=== PATIENT | female | born 1940 | race Caucasian/White ===

== ENCOUNTER 2018-10-21 11:13 | Emergency (ER) | payer MEDICARE, MEDICAID ==
[2018-10-21 11:20] VITALS: BMI 32.3
[2018-10-21 11:23] VITALS: RESP 20
--- NOTE | 2018-10-21 11:49 | ED PDOC ---
HPI: General Adult Time Seen by Provider: 10/21/18 11:17 Chief Complaint (Provider): Rib Pain History Per: Patient History/Exam Limitations: no limitations Onset/Duration Of Symptoms: Days Current Symptoms Are (Timing): Still Present Additional Complaint(s): 78 year old female with HTN and diabetes was referred to the ED by her PMD for right lateral rib pain onset for 4 days. Patient reports the pain occurred after lifting something heavy. Also reports of chronic non-productive cough. Denies shortness of breath, fever, diarrhea, urinary symptoms or fever. PMD: Home [facility] Past Medical History Reviewed: Historical Data, Nursing Documentation, Vital Signs Vital Signs: Last Vital Signs Temp 98.1 F 10/21/18 11:20 Pulse 80 10/21/18 11:20 Resp 20 10/21/18 11:20 BP 159/72 H 10/21/18 11:20 Pulse Ox 97 10/21/18 11:20 - Medical History PMH: Diabetes, HTN - Surgical History Surgical History: Cholecystectomy - Family History Family History: States: Unknown Family Hx - Home Medications Home Medications: Ambulatory Orders Medication Instructions Recorded Cyclobenzaprine [Cyclobenzaprine 10 mg PO Q8 #10 tab 10/21/18 HCl] Naproxen [Naprosyn] 500 mg PO Q12H #20 tab 10/21/18 - Allergies Allergies/Adverse Reactions: Allergies Allergy/AdvReac Type Severity Reaction Status Date / Time No Known Allergies Allergy Verified 02/18/15 10:01 Review of Systems ROS Statement: Except As Marked, All Systems Reviewed And Found Negative Constitutional: Negative for: Fever Respiratory: Positive for: Cough. Negative for: Shortness of Breath Gastrointestinal: Negative for: Vomiting, Diarrhea Genitourinary Female: Negative for: Dysuria, Frequency, Incontinence Physical Exam - Reviewed Nursing Documentation Reviewed: Yes Vital Signs Reviewed: Yes - Physical Exam Appears: Positive for: Well, Non-toxic, No Acute Distress Head Exam: Positive for: ATRAUMATIC, NORMAL INSPECTION, NORMOCEPHALIC Skin: Positive for: Normal Color, Warm, Dry. Negative for: Rash Eye Exam: Positive for: EOMI, Normal appearance, PERRL ENT: Positive for: Normal ENT Inspection Neck: Positive for: Normal, Painless ROM, Supple. Negative for: Decreased ROM Cardiovascular/Chest: Positive for: Regular Rate, Rhythm, Other (mild tenderness on right lateral rib without any rash, trauma or deformity ). Negative for: Murmur Respiratory: Positive for: Normal Breath Sounds. Negative for: Decreased Breath Sounds, Wheezing, Respiratory Distress Gastrointestinal/Abdominal: Positive for: Normal Exam, Soft. Negative for: Tenderness, Guarding, Rebound Back: Positive for: Normal Inspection. Negative for: L CVA Tenderness, R CVA Tenderness Extremity: Positive for: Normal ROM. Negative for: Tenderness, Pedal Edema, Deformity Neurologic/Psych: Positive for: Alert, Oriented (x3). Negative for: Motor/Sensory Deficits - Laboratory Results Result Diagrams: 10/21/18 12:10 10/21/18 12:10 - ECG O2 Sat by Pulse Oximetry: 97 (RA) Pulse Ox Interpretation: Normal Medical Decision Making Medical Decision Making: Time: 1128 Initial Plan: CMP ED Urine Dipstick CBC w/ Differential Chest Two Views [RAD] Reevaluation Scribe Attestation: Documented by Nathaly Rodriguez, acting as a scribe for Gerhard Delacruz MD. Provider Scribe Attestation: All medical record entries made by the Scribe were at my direction and personally dictated by me. I have reviewed the chart and agree that the record accurately reflects my personal performance of the history, physical exam, medical decision making, and the department course for this patient. I have also personally directed, reviewed, and agree with the discharge instructions and disposition. Disposition - Clinical Impression Clinical Impression: Muscle strain - Patient ED Disposition Is Patient to be Admitted: No Counseled Patient/Family Regarding: Studies Performed, Diagnosis, Need For Followup, Rx Given - Disposition Referrals: Home [facility]ano MD [Family Provider] - Disposition: Routine/Home Disposition Time: 12:45 Condition: FAIR Prescriptions: Cyclobenzaprine [Cyclobenzaprine HCl] 10 mg PO Q8 #10 tab Naproxen [Naprosyn] 500 mg PO Q12H #20 tab Instructions: Muscle Strain Print Language: SWEDISH
[2018-10-21 12:19] LABS: BASO % 0.5 % (0.0-2.0); EOS % 0.3 % (0.0-4.0); HEMOGLOBIN 15.6 g/dL (12.0-16.0); LYMPH # 1.9 K/uL (1.0-4.3); LYMPH % 18.6 % (20.0-40.0); MEAN CELL VOLUME 94.2 fl (81.0-99.0); MEAN CORPUSCULAR HEMOGLOBIN 31.4 pg (27.0-31.0); MEAN CORPUSCULAR HGB CONC 33.3 g/dL (33.0-37.0); MEAN PLATELET VOLUME 9.5 fl (7.2-11.7); MONO # 1.1 K/uL (0.0-0.8); MONO % 11.4 % (0.0-10.0); NEUT # 6.9 K/uL (1.8-7.0); NEUT % 69.2 % (50.0-75.0); RBC 4.98 Mil/uL (3.80-5.20); RED CELL DISTRIBUTION WIDTH 13.2 % (11.5-14.5)
--- NOTE | 2018-10-21 12:30 | RAD ---
Date of service: 10/21/2018 HISTORY: Right sided pain COMPARISON: 12/31/2013 TECHNIQUE: Chest PA and lateral FINDINGS: LUNGS: No active pulmonary disease. PLEURA: No significant pleural effusion identified. No pneumothorax apparent. CARDIOVASCULAR: No radiographic findings to suggest acute or significant cardiovascular disease. Atherosclerotic calcifications identified primarily aortic arch. No pulmonary vascular congestion. OSSEOUS STRUCTURES: Stable orthopedic hardware lower cervical upper thoracic spine. VISUALIZED UPPER ABDOMEN: Normal. OTHER FINDINGS: None. IMPRESSION: No active disease. No significant interval change compared to the prior examination(s).
[2018-10-21 12:31] LABS: ALB/GLOB RATIO 1.1 (1.0-2.1); ALBUMIN 4.2 g/dL (3.5-5.0); ALT/SGPT 23 U/L (9-52); AST/SGOT 26 U/L (14-36); BLOOD UREA NITROGEN 15 mg/dl (7-17); CALCIUM 10.2 mg/dL (8.4-10.2); GFR NON-AFRICAN AMERICAN > 60
[2018-10-21 14:08] VITALS: BP 122/78; PULSE 74; TEMP 98.6; O2SAT 98
== END 2018-10-21 14:08 | disposition home or self-care (01) ==
LOC: H.ER 11:13
DX: S23.41XA Sprain of ribs, initial encounter (principal); X50.9XXA Other and unspecified overexertion or strenuous movements or postures, initial encounter; Y92.89 Other specified places as the place of occurrence of the external cause; R05 Cough; E11.9 Type 2 diabetes mellitus without complications; I10 Essential (primary) hypertension

== ENCOUNTER 2019-01-17 10:42 | Emergency (ER) | payer MEDICARE, MEDICAID ==
[2019-01-17 10:53] VITALS: BMI 28.3
[2019-01-17 10:54] VITALS: RESP 16; TEMP 97.6
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
--- NOTE | 2019-01-17 13:53 | CT ---
Date of service: 01/17/2019 PROCEDURE: CT Cervical Spine without contrast HISTORY: pain to neck after mechanical fall COMPARISON: Plain radiographs from 01/17/2018 TECHNIQUE: Axial computed tomography images were obtained of the cervical spine without the use of intravenous contrast. Coronal and sagittal reformatted images were created and reviewed. Radiation dose: Total exam DLP = 409.08 mGy-cm. This CT exam was performed using one or more of the following dose reduction techniques: Automated exposure control, adjustment of the mA and/or kV according to patient size, and/or use of iterative reconstruction technique. FINDINGS: VERTEBRAE: There is normal alignment of the cervical vertebral bodies. Evaluation of the C6 and C7 vertebral bodies is significantly limited due to severe diffuse bone demineralization and extensive streak artifacts from posterior fixation hardware. There is no acute fracture or traumatic anterior listhesis in the upper and mid cervical vertebral bodies. There is anterior longitudinal ligament ossification from C2-C7 and posterior longitudinal ligament ossification at C2-3. The craniocervical junction is normal. 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 There is redemonstration of posterior fixation hardware with transpedicular screws from C4 to T3. DISCS/SPINAL CANAL/NEURAL FORAMINA: There is multilevel degenerative disc disease due to a combination of disc osteophyte complexes, uncovertebral joint hypertrophy and multilevel facet arthropathy, worse at C2-3 with mild spinal canal stenosis mild right and moderate left neural foraminal narrowing. PARASPINAL SOFT TISSUES: Unremarkable. OTHER FINDINGS: There is centrilobular emphysema in the visualized lungs. No apical pneumothorax. IMPRESSION: 1. Limited evaluation due to severe bone demineralization and extensive posterior fixation hardware from C2-T3, in particular the C6 and C7 vertebral bodies cannot be evaluated due to extensive streak artifacts from posterior fixation hardware. Occult fracture cannot be excluded. 2. Allowing for this, no acute displaced fracture or traumatic anterior listhesis. 3. Additional comments as described above.
[2019-01-17 18:25] VITALS: BP 145/86; PULSE 68; O2SAT 100
== END 2019-01-17 13:51 | disposition home or self-care (01) ==
LOC: H.ER 10:42
DX: M54.2 Cervicalgia (principal); E11.9 Type 2 diabetes mellitus without complications; I10 Essential (primary) hypertension; M81.0 Age-related osteoporosis without current pathological fracture